=== PATIENT | female | born 1980 | race Asian ===

== ENCOUNTER 2019-01-10 11:35 | Outpatient (CLI) | payer BC ==
[~2019-01-10] VITALS: Ht 160 cm; Wt 79.5 kg
[2019-01-10 11:55] VITALS: BP 128/81
== END 2019-01-10 13:05 | disposition home or self-care (01) ==
LOC: LDOP 11:35
PROVIDERS: ATTEND Obstetrics & Gynecology
DX: O13.3 Gestational [pregnancy-induced] hypertension without significant proteinuria, third trimester (principal); Z3A.31 31 weeks gestation of pregnancy
CPT/HCPCS: 36415; 59025; 80053; 81003; 82248; 82570; 84156; 84550; 85025; 99201; G0463